=== PATIENT | male | born 1970 | race Caucasian/White ===

== ENCOUNTER 2022-04-29 05:28 | Outpatient (CLI) | payer BC ==
[~2022-04-29] VITALS: Ht 167.7 cm; Wt 102.3 kg
== END 2022-04-29 12:30 | disposition home or self-care (01) ==
LOC: PREOP 05:28
PROVIDERS: ATTEND Specialist
DX: Z01.818 Encounter for other preprocedural examination (principal)

== ENCOUNTER 2022-05-06 10:08 | Day surgery (SDC) | payer BC ==
[2022-05-06] VITALS (11 sets, daily range): BP systolic 86–127; BP diastolic 51–91
[~2022-05-06] VITALS: Ht 167.7 cm; Wt 102.3 kg
[2022-05-06] MEDS ORDERED: ceFAZolin INJECTION 2,000 MG in NS (IVPB) 50 ML IV ONE (10:30)
[2022-05-06] MEDS: LACTATED RINGERS 1,000 ML IV PRN ×2 (10:57→13:42)
[2022-05-06] MEDS ORDERED: DILT240C91 PO (11:03)
[2022-05-06] MEDS ORDERED: BACL10TA PO (11:03)
[2022-05-06] MEDS ORDERED: LOSA1TAB26 PO (11:03)
[2022-05-06] MEDS ORDERED: OMEP10SU2 PO (11:03)
[2022-05-06] MEDS ORDERED: CARV12.53 PO (11:03)
[2022-05-06] MEDS ORDERED: ROPIVACAINE 5MG/ML 30ML VIAL ONE (11:30)
[2022-05-06] MEDS ORDERED: BSS 15 ML ONE (11:31)
[2022-05-06] MEDS ORDERED: BACITRACIN OINTMENT 28 GM TUBE ONE (11:31)
[2022-05-06] MEDS ORDERED: PHENYLEPHRINE 0.5% NASAL SPR (NEO-SYNEPHRINE) REG ONE ×2 (11:31→13:06)
[2022-05-06] MEDS ORDERED: LIDOCAINE PF 2% 5 ML (XYLOCAINE) VIAL ONE (11:43)
[2022-05-06] MEDS ORDERED: fentaNYL INJ 100 MCG/2 ML AMP ONE (11:43)
[2022-05-06] MEDS ORDERED: SEVOFLURANE (ULTANE) 15 ML INHAL SOLN ONE ×2 (11:43→14:34)
[2022-05-06] MEDS ORDERED: proPOfol 200 MG/20 ML (DIPRIVAN) VIAL IV ONE (11:43)
[2022-05-06] MEDS ORDERED: ONDANSETRON 4 MG/2 ML (SDV) Z0FRAN ONE (11:43)
[2022-05-06] MEDS ORDERED: ROCURONIUM 10 MG/ML 5 ML SYRINGE IV ONE (11:43)
[2022-05-06] MEDS ORDERED: MIDAZOLAM 2 MG/2 ML (VERSED) VIAL ONE (11:44)
--- NOTE | 2022-05-06 12:12 | Progress Note-Pre Operative ---
Pre-Operative Progress Note Date of Available H&P: May 06, 2022 Date H&P Reviewed: May 06, 2022 Time H&P Reviewed: 11:30 Changes from last HP no changes Pre-Operative Diagnosis: bilateral turbinate hypertrophy deviated nasal septum SARAH CORBETT DDS May 06, 2022 12:12
[2022-05-06] MEDS ORDERED: HYDROcodone/APAP 7.5MG-325 MG/15 ML (LORTAB) UDC PO PRN (12:15)
[2022-05-06] MEDS ORDERED: PHENYLEPHRINE 100 MCG/ML 10 ML (ANESTHESIA) SYR ONE ×2 (12:27→13:49)
--- NOTE | 2022-05-06 12:32 | Consultation ---
History of Present Illness History of Present Illness Patient Consulted On(vicky/time) 05/06/22 12:32 Date Seen by Provider: May 06, 2022 Time Seen by Provider: 11:30 Reason for Visit: turbinete hypertrophy History of Present Illness pt has chronic long standing nasal turbinet hypertrophy with deviated septum Allergies and Home Medications Allergies Coded Allergies: morphine (Verified Allergy, Unknown, 04/29/22) oxaprozin (Verified Allergy, Unknown, 04/29/22) Patient Home Medication List Baclofen (Baclofen) 10 Mg Tablet, 10 MG PO TID, (Reported) Entered as Reported by: ROMAN SPEARS on 05/06/221102 Last Action: New Order Carvedilol (Carvedilol) 12.5 Mg Tablet, 12.5 MG PO BID, (Reported) Entered as Reported by: ROMAN SPEARS on 05/06/221102 Last Action: Last Taken Edited Diltiazem HCl (Diltiazem 24Hr ER) 240 Mg Cap.er.24h, 240 MG PO DAILY, (Reported) Entered as Reported by: ROMAN SPEARS on 05/06/221102 Last Action: New Order Losartan/Hydrochlorothiazide (Losartan-Hctz 100-12.5 mg Tab) 100 Mg-12.5 Mg Tablet, 1 EACH PO DAILY, (Reported) Entered as Reported by: ROMAN SPEARS on 05/06/221102 Last Action: New Order Omeprazole Magnesium (Prilosec) 10 Mg Suspdr.pkt, 10 MG PO DAILY, (Reported) Entered as Reported by: ROMAN SPEARS on 05/06/221102 Last Action: New Order Past Jwbludq-Ziiovr-Jwmusp Hx Patient Social History Smoking Status: Never a Smoker Seasonal Allergies Seasonal Allergies: Yes Past Medical History Surgeries: Yes (BILAT KNEE SCOPES, DISC REPLACEMENT, HIATAL HERNIA, HEART CATH,LITHOTRIPSY') Appendectomy, Gallbladder Respiratory: Yes Sleep Apnea Currently Using CPAP: No Currently Using BIPAP: No Cardiac: Yes Hypertension Neurological: Yes Headaches /Migraines Sexually Transmitted Disease: No HIV/AIDS: No Genitourinary: Yes Kidney Stones Gastrointestinal: Yes Gastroesophageal Reflux, Hiatal Hernia, Gall Bladder Disease Musculoskeletal: Yes Degenerate Disk Disease, Arthritis Endocrine: No HEENT: No Cancer: No Psychosocial: No Integumentary: Yes Psoriasis Blood Disorders: No Physical Exam-General Problems Physical Exam Vital Signs Vital Signs - First Documented 05/06/22 10:15 Temp 36.7 Pulse 74 Resp 18 B/P (MAP) 127/91 (103) Pulse Ox 97 O2 Delivery Room Air Capillary Refill : SARAH CORBETT DDS May 06, 2022 12:32
[2022-05-06] MEDS ORDERED: EPI INJ ONE ×2 (12:45)
[2022-05-06] MEDS ORDERED: LIDOCAINE 2% INJ ONE ×2 (12:45)
[2022-05-06] MEDS ORDERED: EPINEPHRINE INJ ONE ×2 (13:00)
[2022-05-06] MEDS ORDERED: LIDOCAINE INJ ONE ×2 (13:00)
[2022-05-06] MEDS ORDERED: ROPIVACAINE 5MG/ML 30ML VIAL INJ ONE (13:05)
[2022-05-06] MEDS ORDERED: BSS 15 ML IR ONE (13:07)
[2022-05-06] MEDS ORDERED: BACITRACIN OINTMENT 28 GM TUBE TOP ONE (13:08)
--- NOTE | 2022-05-06 14:33 | Anesthesia-General Post-Op ---
General Patient Condition Mental Status/LOC: Same as Preop Cardiovascular: Satisfactory Nausea/Vomiting: Absent Respiratory: Satisfactory Pain: Controlled Complications: Absent Post Op Complications Complications None Follow Up Care/Instructions Patient Instructions None needed. Anesthesia/Patient Condition Patient Condition Patient is doing well, no complaints, stable vital signs, no apparent adverse anesthesia problems. No complications reported per nursing. JUNAID MONSALVE CRNA May 06, 2022 14:33
[2022-05-06] MEDS ORDERED: fentaNYL INJ 100 MCG/2 ML AMP IVP ONE (14:45)
[2022-05-06] MEDS ORDERED: ONDANSETRON 4 MG/2 ML (SDV) Z0FRAN IVP PRN (14:45)
[2022-05-06] MEDS ORDERED: PROMETHAZINE INJ 25 MG/ML (PHENERGAN) AMP IVP ONE (14:45)
[2022-05-06] MEDS ORDERED: MEPERIDINE (DEMEROL) INJ 50 MG/ML IVP ONE (14:45)
--- NOTE | 2022-05-30 02:36 | OPERATIVE REPORT ---
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 SURGEON: Sarah Corbett DDS. 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 PREOPERATIVE DIAGNOSES: 1. Bilateral turbinate hypertrophy. 2. Deviated nasal septum. POSTOPERATIVE DIAGNOSES: 1. Bilateral turbinate hypertrophy. 2. Deviated nasal septum. PROCEDURES: 1. Septoplasty with resection of bone and cartilage. 2. Bilateral turbinectomy. ANESTHESIA: General endotracheal. There were no complications. Blood loss was 300 mL. FLUIDS: 1700 mL of crystalloid. Instrument, needle and sponge count were correct x2. HISTORY OF PRESENT ILLNESS/INDICATIONS FOR PROCEDURE: The patient is a 51-year-old white male who presents upon evaluation to my clinic where he has completely occluded both his right and left naris. He has extreme amount of turbinate hypertrophy on the left side, particularly inferior and medial turbinate and then on the right side is where the nasal septum deviated into the nasal opening, decrease in his airway and then he also has hypertrophy of the inferior and medial turbinate as well. He states he has difficulty, he presently has obstructive sleep apnea and uses his machine; however, he finds it difficult to be able to wear his machine as he cannot breath or get adequate air through his nasal passages and subsequently was forced to breathe with his mouth and unfortunately does not tolerate opening his mouth while wearing his CPAP as well as mouth closed. I spoke with him at length and advised him that we could perform bilateral turbinectomy and correct his deviated nasal septum. We gave him ample time for questions. They were answered and he elected to have surgery at [facility] at the earliest opportune time. DESCRIPTION OF PROCEDURE: The patient was taken to the operating room and placed on the operating table. The appropriate monitors were placed and anesthesia was induced via orotracheal intubation without any difficulty. Once this was secured, the surgeon left the room to scrub and returned to don sterile gowns and gloves and prepped and draped the patient in the usual standard sterile fashion. After this, I was able to deposit local anesthesia in the inferior and medial turbinate area as well as in the nasal septum and floor of the nose. After this was allowed to take effect, I then used a 15 blade to excise through the mucosa of the septum down to the floor of the nose on the right side and elevated a full-thickness mucoperiosteal flap and excise through the cartilaginous portion of the septum, leaving approximately a 1 cm columellar strut and dorsal strut of cartilage. After this had been resected, the cartilage had been deviated and removing it off the mid palatal crest and then back to the bone. This was removed without difficulty. I did not remove any nasal or bony projections of the mid palatal crest with a rongeur or a Emile forceps. After this, we irrigated and then closed with 4-0 chromic gut in an interrupted fashion. After this, we used Bovie electrocautery to cauterize the inferior and medial turbinate starting on the right side and actually removed an approximately 1.5 x 3 cm x 0.5 cm portion of the turbinate as it was quite large. After this, we then used Bovie electrocautery to cauterize the inferior turbinate and then continued our cautery inferior to the bony projection of the inferior turbinate and then used this to achieve hemostasis. We then turned our attention to the left inferior turbinate, which also had a significant degree of hypertrophy and the exact same procedure was completed; however, we did have to remove quite as much on that side as it had smaller due to the fact the septum was deviated into the left nasal passage. I then also cauterized the middle turbinate and removed approximately 0.3 x 0.5 x 1 cm strip of tissue and then also used a Bovie for cauterization and hemostasis. After this, we suctioned out the nose. We did place a throat pack prior to the procedure. We then placed Lyle splints and they were fixated with 3-0 silk through the columella. Then, also placed a packing to increase or aid in the hemostasis over the next few days. Prior to starting the procedure, we did use Michael-Synephrine to place intranasally to decrease the edematous and swollen turbinates. Subsequently, we then removed the throat pack. He was allowed to emerge from his anesthetic until he was breathing spontaneously. He was then transported to the recovery room and assessed to have stable vital signs, breathing spontaneously with a pulse ox of 99%. Job ID: [id number] DocumentID: [id number] Dictated Date: 05/30/2022 00:35:53 Risk Management Director Date: 05/30/2022 02:34:00 Dictated By: SARAH CORBETT DDS
== END 2022-05-06 16:30 | disposition home or self-care (01) ==
LOC: SDC 10:08
PROVIDERS: ATTEND Specialist
DX: J34.2 Deviated nasal septum (principal); J34.3 Hypertrophy of nasal turbinates; E66.9 Obesity, unspecified; Z68.36 Body mass index [BMI] 36.0-36.9, adult
CPT/HCPCS: 87081; 88300